=== PATIENT | female | born 1950 | race Caucasian/White ===

== ENCOUNTER 2016-11-27 17:42 | Emergency (ER) | payer MEDICARE, BC ==
[~2016-11-27] VITALS: Ht 162.6 cm; Wt 56.7 kg
[2016-11-27] MEDS ORDERED: LEVO50TA6 (18:56)
[2016-11-27] MEDS ORDERED: [UNRECOGNIZED DRUG - CODE] (18:56)
[2016-11-27] MEDS ORDERED: PRD20T PO (19:22)
--- NOTE | 2016-11-27 19:22 | ED Integumentary General ---
General Chief Complaint: Allergic Reaction Stated Complaint: RASH ON NECK AND ARMS Nursing Triage Note: c/o itchy rash to arms and surrounding neckline. Onset on 10-31-16 but rash resolved. Pt suspected a detergent reaction. Rash returned yesterday. Pt admits to wearing a shirt that was washed in the same detergent. Source: patient Exam Limitations: no limitations History of Present Illness Time seen by provider: 19:09 Initial Comments This 66-year-old woman presents to the emergency room with pruritic rash on her neck, upper chest, and bilateral arms. She had a similar rash several weeks ago which was presumed to be related to new detergent. Rash resolved after she eliminated the exposure. She did wear a shirt washed in the same detergent earlier in the week and rash return on Tuesday. She has been using Benadryl and hydrocortisone cream without much benefit. She believes the rash is now present in areas where there was no contact by the shirt. She cannot identify any other exposures. She denies any throat lip or tongue swelling or difficulty breathing. Allergies and Home Medications Home Medications Flu Vacc [id number](65Yr Up)/Pf 180 Mcg/0.5 Ml Syringe, #1 (Reported) Levothyroxine Sodium 50 Mcg Tablet, #90 (Reported) Prednisone 20 Mg Tab, 20 MG PO DAILY, #4 Prescribed by: ZION WARREN on 11/27/161921 Constitutional: no symptoms reported EENTM: no symptoms reported Respiratory: no symptoms reported Cardiovascular: no symptoms reported Gastrointestinal: no symptoms reported Genitourinary: no symptoms reported Musculoskeletal: no symptoms reported Skin: see HPI Psychiatric/Neurological: No Symptoms Reported Endocrine: No Symptoms Reported Past Iyxspix-Mfaius-Fkaadx Hx Patient Social History Alcohol Use: Denies Use Recreational Drug Use: No Smoking Status: Never a Smoker Recent Foreign Travel: No Contact w/Someone Who Travel: No Recent Infectious Disease Expo: No Surgeries HX Surgeries: No Respiratory Hx Respiratory Disorders: No Cardiovascular Hx Cardiac Disorders: No Neurological Hx Neurological Disorders: No Reproductive System : No Genitourinary Hx Genitourinary Disorders: No Gastrointestinal Hx Gastrointestinal Disorders: No Musculoskeletal Hx Musculoskeletal Disorders: No Endocrine Hx Endocrine Disorders: Yes Endocrine Disorders: Hypothyroidsim HEENT HX ENT Disorders: No Cancer Hx Cancer: No Psychosocial Hx Psychiatric Problems: No Physical Exam Vital Signs Vital Sign - Last 12Hours 11/27/16 18:49 Temp 98.0 Pulse 70 Resp 16 B/P (MAP) 147/75 Pulse Ox 98 O2 Delivery Room Air Capillary Refill : Less Than 3 Seconds General Appearance: WD/WN, no apparent distress HEENT: PERRL/EOMI, normal ENT inspection, pharynx normal Neck: other (mildly raised erythematous pruritic rash on the neck and upper chest) Cardiovascular: regular rate, rhythm, no edema, no murmur Respiratory: lungs clear, normal breath sounds, no respiratory distress, no accessory muscle use Extremities: normal inspection, no pedal edema 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, no motor/sensory deficits, alert, normal mood/affect, oriented x 3 Skin: warm/dry, rash (slightly raised erythematous pruritic rash on the neck, upper chest, and arms) Skin Problem Location: neck, upper extremities, torso Skin Problem Character: erythema, patchy, rash Progress/Results/Core Measures Results/Orders Vital Signs/I&O Vital Sign - Last 12Hours 11/27/16 18:49 Temp 98.0 Pulse 70 Resp 16 B/P (MAP) 147/75 Pulse Ox 98 O2 Delivery Room Air Blood Pressure Mean: 99 Departure Impression Impression: Primary Impression: Contact dermatitis Qualified Codes: L25.9 - Unspecified contact dermatitis, unspecified cause Disposition: 01 HOME, SELF-CARE Condition: Stable Departure-Patient Inst. Decision time for Depature: 19:15 Referrals: GINNY DAWSON MD (PCP/Family) Primary Care Physician Patient Instructions: Dermatitis Add. Discharge Instructions: Use a nondrowsy antihistamine such as Claritin, Zyrtec, or their generic equivalents. You may add Benadryl at night to help with sleep. You may continue using hydrocortisone cream as well. Use your prednisone as prescribed. Be mindful of any allergic triggers and eliminate those from your environment. Return to care immediately if symptoms worsen, especially if you develop any swelling of the throat, lips, or tongue, or if you develop any shortness of breath. All discharge instructions reviewed with patient and/or family. Voiced understanding. Scripts Prednisone (Prednisone) 20 Mg Tab 20 MG PO DAILY, #4 TAB Prov: ZION RDZ MD 11/27/16 ZION RDZ MD Nov 27, 2016 19:22
[2016-11-27 19:31] VITALS: BP 140/72
== END 2016-11-27 19:31 | disposition home or self-care (01) ==
LOC: EDUNIT# 17:42 → ER 17:46
DX: L25.9 Unspecified contact dermatitis, unspecified cause (principal); E03.9 Hypothyroidism, unspecified
CPT/HCPCS: 99282

== ENCOUNTER → 2020-03-25 | Outpatient (CLI) | payer MEDICARE ==
[~2020-03-25] MED LIST: LEVO50TA6; PRD20T PO; [UNRECOGNIZED DRUG - CODE]
--- NOTE | 2020-03-25 17:41 | Diagnostic Imaging Report ---
INDICATION: Low back pain. COMPARISON: No comparison available. FINDINGS: There is a dextroscoliosis with rotatory component of the lumbar spine with apex at L2. Lateral alignment appears unremarkable. There is some wedging of the superior endplate of L1 of indeterminate age. Remainder of the lumbar vertebral body heights appear maintained. The visualized bones of the pelvis demonstrate no acute process. There are right greater than left arthritic changes at the hips. IMPRESSION: Thoracolumbar rotatory dextroscoliosis with normal lateral alignment. There are multilevel endplate changes and lower lumbar facet arthropathy. There is age-indeterminate wedging of the superior endplate of L1. Right greater than left hip osteoarthritic changes noted. Dictated by: Dictated on workstation # [id number]
--- NOTE | 2020-03-25 22:23 | Diagnostic Imaging Report ---
INDICATION: Back pain COMPARISON: No comparison. FINDINGS: There is straightening of normal thoracic kyphosis in the lateral view but no anterior or posterior listhesis. The frontal projection shows mild leftward convexity mid to lower thoracic scoliotic curvature as well as rightward convexity curvature of the lumbar spine. A fracture is not identified. No acute appearing endplate irregularity. IMPRESSION: Reciprocal thoracolumbar scoliotic curvature with diminished thoracic kyphosis. No listhesis or acute thoracic bony abnormality. Dictated by: Dictated on workstation # [id number]
== END ==
LOC: RAD 16:35
PROVIDERS: ATTEND Family Medicine
DX: M41.85 Other forms of scoliosis, thoracolumbar region (principal); M47.816 Spondylosis without myelopathy or radiculopathy, lumbar region; M16.12 Unilateral primary osteoarthritis, left hip; M48.56XA Collapsed vertebra, not elsewhere classified, lumbar region, initial encounter for fracture
CPT/HCPCS: 72072; 72100

== ENCOUNTER → 2020-04-03 | Outpatient (CLI) | payer MEDICARE ==
--- NOTE | 2020-04-03 11:56 | Diagnostic Imaging Report ---
PROCEDURE: MRI lumbar spine. TECHNIQUE: Multiplanar, multisequence MRI of the lumbar spine was performed without contrast. INDICATION: Mid back pain. There are no prior MRI examinations available for comparison. The plain film examination of the lumbar spine performed on 03/25/2020 did note thoracolumbar rotary dextroscoliosis as well as age indeterminate wedging of the superior endplate of L1. On the T2 parasagittal images of this exam the mild compression deformity of L1 is again evident. There is no abnormal signal in this area to suggest bone edema and I suspect this injury is long-standing in nature. The other vertebral body heights are within normal limits. There is desiccation of the disc at every level. The disc spaces are fairly well-maintained. At the L4-L5 level there is borderline trefoil stenosis with mild narrowing of the neural foramen bilaterally. The AP diameter of the thecal sac at this level measures 10.0 mm. There are similar degenerative changes at L3-L4. The AP diameter of the thecal sac measures 9.6 mm. The remainder of the lumbar spine is unremarkable for spinal stenosis or nerve root encroachment. There is no abnormal signal arising from the cord. There is no sign of a paraspinal mass. IMPRESSION: 1. The mild compression deformity of superior endplate of L1 is felt to be long-standing in nature. There is no acute bony abnormality identified. 2. There is degenerative disc, ligamentous and bony disease at L3-L4 and L4-L5. There is borderline trefoil stenosis at these two levels with mild neuroforaminal narrowing bilaterally. Dictated by: Dictated on workstation # [id number]
== END ==
LOC: RAD 11:00
PROVIDERS: ATTEND Nurse Practitioner Family
DX: M51.36 Other intervertebral disc degeneration, lumbar region (principal); M43.8X6 Other specified deforming dorsopathies, lumbar region
CPT/HCPCS: 72148

== ENCOUNTER → 2023-01-07 | Outpatient (CLI) | payer MEDICARE ==
--- NOTE | 2023-01-07 16:17 | Diagnostic Imaging Report ---
INDICATION: Palpable mass left breast. Patient originally presented to the department for bilateral diagnostic mammogram due to palpable mass in the left breast. However, only a 2-D and 3-D CC right-sided mammographic view could be obtained then patient refused the remainder of the study. Right breast shows scattered fibroglandular densities. There are benign calcifications in the right breast. No mass or malignant-appearing microcalcifications are seen on a single view. IMPRESSION: Limited study. Only a right CC view could be obtained. Patient refused the remainder of the study. No suspicious abnormalities on this single view of the right breast is identified. Patient is scheduled to undergo a left breast ultrasound to evaluate the area of palpable abnormality. This will be performed today. ACR BI-RADS Category 2: Benign findings. Result letter will be mailed to the patient. Note: At least 10% of breast cancer is not imaged by mammography. BI-RADS Category 2 Dictated by: Dictated on workstation # [id number]
--- NOTE | 2023-01-07 16:33 | Diagnostic Imaging Report ---
INDICATION: Palpable lump left breast. Sonographic interrogation of the area of the palpable abnormality in the left breast was performed. This corresponds to the 6 o'clock location, approximately 1-2 cm from the nipple. There is a large hypoechoic solid appearing mass at this location which appears to contain internal calcifications. This measures approximately 3.0 x 2.8 x 3.4 cm. Evaluation of the left axilla was also performed demonstrating 2 prominent lymph nodes, largest measuring 1.6 x 1.5 x 2.9 cm. Lymph nodes have lost its normal parenchymal architecture and are concerning for metastatic nodes. IMPRESSION: Large solid mass 6 o'clock location left breast corresponding to the palpable abnormality. This is concerning for breast malignancy and tissue sampling is recommended. There are also prominent lymph nodes in the left axilla, concerning for axillary metastatic disease. Tissue sampling of the lymph nodes is recommended as well. Both of these areas would be amenable to ultrasound-guided approach. ACR BI-RADS Category 4: Suspicious abnormality. Result letter will be mailed to the patient. Note: At least 10% of breast cancer is not imaged by mammography. BI-RADS Category 4 Dictated by: Dictated on workstation # [id number]
== END ==
LOC: RAD 14:15
PROVIDERS: ATTEND Family Medicine
DX: N63.25 Unspecified lump in the left breast, overlapping quadrants (principal); R59.0 Localized enlarged lymph nodes
CPT/HCPCS: 77063

== ENCOUNTER → 2023-01-17 | Day surgery (SDC) | payer MEDICARE ==
[~2023-01-17] MED LIST changes: +LIDOCAINE 1% INJ 10 ML VIAL INJ ONE
[2023-01-17 12:10] VITALS: BP 149/80
--- NOTE | 2023-01-17 13:30 | Diagnostic Imaging Report ---
INDICATION: Left axillary lymphadenopathy. Patient presents for ultrasound-guided core biopsy. Patient brought to the sonographic suite placed on the table in the supine position. Ultrasound imaging of the left axilla was performed to evaluate appropriate entry site. Left axilla was prepped and draped in usual sterile fashion. Small amount of 1% lidocaine was utilized for local anesthesia. A total of 3 core biopsies were obtained of an enlarged left axillary lymph node utilizing a 14-gauge Achieve needle. A marker clip was then deployed. Needle was removed and hemostasis was obtained. Patient tolerated the procedure well and left the department in stable condition. IMPRESSION: Successful ultrasound-guided core biopsy of the enlarged left axillary lymph node. Pathology results are currently pending. Dictated by: Dictated on workstation # [id number]
--- NOTE | 2023-01-17 13:32 | Diagnostic Imaging Report ---
INDICATION: Left breast mass. Patient presents for ultrasound-guided core biopsy. Patient brought to the sonographic suite and placed on table in the supine position. Ultrasound imaging of the left breast was performed to evaluate appropriate entry site. Left breast was then prepped and draped in usual sterile fashion. Small amount of 1% lidocaine was utilized for local anesthesia. A total of 4 core biopsies were made of the large hypoechoic mass in the retroareolar left breast utilizing a 14-gauge Achieve needle. Needle was removed were removed and hemostasis was obtained using manual compression. Patient tolerated the procedure well. IMPRESSION: Successful ultrasound-guided core biopsy of the dominant mass retroareolar left breast, utilizing sonographic guidance. Pathology results are currently pending. Dictated by: Dictated on workstation # [id number]
== END ==
LOC: RAD 12:02
PROVIDERS: ATTEND Family Medicine
DX: C50.912 Malignant neoplasm of unspecified site of left female breast (principal); C77.3 Secondary and unspecified malignant neoplasm of axilla and upper limb lymph nodes
CPT/HCPCS: 19083; 49180; 76942; A4648

== ENCOUNTER 2023-01-25 13:44 | Outpatient (RCR) | payer MEDICARE ==
[~2023-01-25 13:44] MED LIST changes: -LIDOCAINE 1% INJ 10 ML VIAL INJ ONE
[2023-01-25 14:59] LABS: BASOPHILS # (AUTO) 0.1 10^3/uL (0.0-0.1); BASOPHILS % (AUTO) 1 % (0-10); EOSINOPHILS % (AUTO) 0 % (0-10); HEMATOCRIT 39 % (35-52); HEMOGLOBIN 12.9 g/dL (11.5-16.0); LYMPHOCYTES # (AUTO) 1.4 X 10^3 (1.0-4.0); LYMPHOCYTES % (AUTO) 20 % (12-44); MEAN CORPUSCULAR HEMOGLOBIN 31 pg (25-34); MEAN CORPUSCULAR HGB CONC 33 g/dL (32-36); MEAN CORPUSCULAR VOLUME 93 fL (80-99); MEAN PLATELET VOLUME 10.8 fL (9.0-12.2); MONOCYTES # (AUTO) 0.5 X 10^3 (0.0-1.0); MONOCYTES % (AUTO) 7 % (0-12); NEUTROPHILS % (AUTO) 72 % (42-75); PLATELET COUNT 225 10^3/uL (130-400)
[2023-01-25 15:15] LABS: ALBUMIN 4.4 GM/DL (3.2-4.5); BILIRUBIN,TOTAL 0.5 MG/DL (0.1-1.0); CALCIUM 9.5 MG/DL (8.5-10.1); CREATININE SERUM 0.8 MG/DL (0.60-1.30); POTASSIUM 3.7 MMOL/L (3.6-5.0); TOTAL PROTEIN 7.8 GM/DL (6.4-8.2)
== END 2023-01-29 | disposition home or self-care (01) ==
LOC: ONC 13:44
PROVIDERS: ATTEND Internal Medicine Hematology & Oncology
DX: C50.912 Malignant neoplasm of unspecified site of left female breast (principal)
CPT/HCPCS: 80053; 85025; G0463; 99204

== ENCOUNTER → 2023-02-07 | Outpatient (CLI) | payer MEDICARE ==
[~2023-02-07] MED LIST changes: +IOHEXOL 350 MG/ML 100 ML (OMNIPAQUE 350) VIAL IV ONE; +NS 100 ML (IVPB) BAG IV ONE
--- NOTE | 2023-02-07 10:03 | Diagnostic Imaging Report ---
PROCEDURE: CT chest, abdomen, and pelvis with contrast. TECHNIQUE: Multiple contiguous axial images were obtained through the chest, abdomen, and pelvis after the administration of intravenous contrast. Auto Exposure Controls were utilized during the CT exam to meet ALARA standards for radiation dose reduction. INDICATION: History of breast cancer, left breast tenderness. I have no priors FINDINGS: CHEST: There is a large irregular retroareolar left breast mass heterogeneously enhancing with areas of internal calcification and measures 4.1 cm transverse with an AP depth of 3.1 cm maximal, ventrally extending to the skin surface. Lateral to this mass is a 2nd left breast lesion presumed a satellite metastasis measuring 1.6 cm long. There is pathological ipsilateral left axillary lymphadenopathy with the mass measuring 2.2 x 1.9 cm showing peripheral hyperdensity which may be a calcification or local biopsy localization clip. There is a mass posterior to the lateral margin of the left pectoralis minor measuring 2.2 x 1.7 cm. Contralateral right axilla and chest wall appeared normal. The right breast unremarkable at CT. There is abnormal asymmetric soft tissue fullness of the superior left internal mammary chain at the level of the lower manubrium where tissue measured 1.7 x 1.0 cm. The remaining hilar and mediastinal stations appeared normal. There is a noncalcified pulmonary nodule left upper lobe lung 8.2 mm (image 33 series 3). In addition there is a lingular calcified benign nodule in the left upper lobe. No other lung mass. No pneumonia, edema or effusion. No acute or suspect bony lesion. ABDOMEN AND PELVIS: There are multiple low attenuating but solid-appearing lesions in the left and right hepatic lobes presumptively reflective of metastatic disease with the largest solid mass measuring 3.4 cm. The adrenals are negative. The pancreas unremarkable. Kidneys unobstructed and normal. Spleen unremarkable. Some heterogeneous density of the uterus with calcifications and distortion of the endometrium presumptively reflective of underlying fibroids. No adnexal lesion. The pelvic sidewalls and ileo-inguinal stations appeared unremarkable. There is a normal appendix. There is no bowel obstruction or ileus. There is no ascites or omental infiltration and no abdominal pelvic mesenteric or retroperitoneal lymphadenopathy. There is a L1 superior endplate compression deformity without lucent fracture line component or adjacent edema, this is presumed old. No convincing bony metastatic disease to the abdomen or pelvis. IMPRESSION: CHEST: 1. Dominant retroareolar left breast mass with likely additional left breast lateral satellite lesion and ipsilateral left axillary and retropectoral presumptive metastatic adenopathy. 2. A probable left superior internal mammary chain metastatic node. 3. Subcentimeter left upper lobe noncalcified pulmonary nodule is suspicious, there is an additional calcified benign left lung granulomata incidentally noted. ABDOMEN AND PELVIS: 1. Presumptive multifocal hepatic metastatic disease. No other suspected abdominal pelvic metastatic lesion. 2. Likely old L1 superior endplate single column compression deformity without pathological features apparent. Dictated by: Dictated on workstation # [id number]
--- NOTE | 2023-02-07 14:45 | Diagnostic Imaging Report ---
Exam: Nuclear medicine whole-body bone scan. Date: February 07, 2023. Indication: 72-year-old female, history of left breast cancer. Evaluation for metastatic disease. Comparison: CT chest, abdomen and pelvis February 07, 2023. Findings: 27.2 mCi of technetium labeled MDP radiotracer was administered. Delayed subsequent whole-body bone scan images were subsequently obtained. There is no identified radiotracer avid lesion concerning for an osteoblastic bone metastasis. Impression: 1. No evidence of an osteoblastic bone metastasis. Dictated by: Dictated on workstation # [id number]
== END ==
LOC: RAD 08:49
PROVIDERS: ATTEND Internal Medicine Hematology & Oncology
DX: C50.912 Malignant neoplasm of unspecified site of left female breast (principal); R91.8 Other nonspecific abnormal finding of lung field
CPT/HCPCS: 71260; 74177; 78306; A9503

== ENCOUNTER 2023-02-16 10:37 | Outpatient (RCR) | payer MEDICARE ==
[~2023-02-16 10:37] MED LIST changes: -IOHEXOL 350 MG/ML 100 ML (OMNIPAQUE 350) VIAL IV ONE; -NS 100 ML (IVPB) BAG IV ONE
== END 2023-03-01 | disposition home or self-care (01) ==
LOC: ONC 10:37
PROVIDERS: ATTEND Internal Medicine Hematology & Oncology
DX: C50.912 Malignant neoplasm of unspecified site of left female breast (principal)
CPT/HCPCS: 86300

== ENCOUNTER 2023-03-29 10:00 | Outpatient (RCR) | payer MEDICARE ==
[2023-03-07 10:39] LABS: BASOPHILS # (AUTO) 0.1 10^3/uL (0.0-0.1); BASOPHILS % (AUTO) 1 % (0-10); EOSINOPHILS # (AUTO) 0.1 10^3/uL (0.0-0.3); EOSINOPHILS % (AUTO) 2 % (0-10); HEMATOCRIT 39 % (35-52); HEMOGLOBIN 12.7 g/dL (11.5-16.0); LYMPHOCYTES # (AUTO) 1.1 10^3/uL (1.0-4.0); LYMPHOCYTES % (AUTO) 24 % (12-44); MEAN CORPUSCULAR HEMOGLOBIN 31 pg (25-34); MEAN CORPUSCULAR HGB CONC 33 g/dL (32-36); MEAN CORPUSCULAR VOLUME 94 fL (80-99); MEAN PLATELET VOLUME 10.4 fL (9.0-12.2); MONOCYTES # (AUTO) 0.2 10^3/uL (0.0-1.0); MONOCYTES % (AUTO) 4 % (0-12); NEUTROPHILS # (AUTO) 3.3 10^3/uL (1.8-7.8); NEUTROPHILS % (AUTO) 70 % (42-75); PLATELET COUNT 195 10^3/uL (130-400); WHITE BLOOD COUNT 4.7 10^3/uL (4.3-11.0)
[2023-03-14 10:40] LABS: HEMOGLOBIN 11.9 g/dL (11.5-16.0); MEAN CORPUSCULAR VOLUME 94 fL (80-99)
[2023-03-14 10:41] LABS: BASOPHILS # (AUTO) 0.1 10^3/uL (0.0-0.1); BASOPHILS % (AUTO) 2 % (0-10); EOSINOPHILS % (AUTO) 1 % (0-10); HEMATOCRIT 36 % (35-52); LYMPHOCYTES # (AUTO) 0.9 10^3/uL (1.0-4.0); LYMPHOCYTES % (AUTO) 36 % (12-44); MEAN CORPUSCULAR HEMOGLOBIN 31 pg (25-34); MEAN CORPUSCULAR HGB CONC 33 g/dL (32-36); MEAN PLATELET VOLUME 10.6 fL (9.0-12.2); MONOCYTES # (AUTO) 0.1 10^3/uL (0.0-1.0); MONOCYTES % (AUTO) 4 % (0-12); NEUTROPHILS # (AUTO) 1.4 10^3/uL (1.8-7.8); NEUTROPHILS % (AUTO) 56 % (42-75); WHITE BLOOD COUNT 2.5 10^3/uL (4.3-11.0)
[2023-03-14 10:42] LABS: PLATELET COUNT 106 10^3/uL (130-400)
[2023-03-21 10:11] LABS: BASOPHILS % (AUTO) 1 % (0-10); EOSINOPHILS % (AUTO) 1 % (0-10); HEMATOCRIT 35 % (35-52); HEMOGLOBIN 11.3 g/dL (11.5-16.0); LYMPHOCYTES # (AUTO) 0.9 10^3/uL (1.0-4.0); LYMPHOCYTES % (AUTO) 42 % (12-44); MEAN CORPUSCULAR HEMOGLOBIN 31 pg (25-34); MEAN CORPUSCULAR HGB CONC 33 g/dL (32-36); MEAN CORPUSCULAR VOLUME 95 fL (80-99); MEAN PLATELET VOLUME 10.2 fL (9.0-12.2); MONOCYTES # (AUTO) 0.1 10^3/uL (0.0-1.0); MONOCYTES % (AUTO) 6 % (0-12); NEUTROPHILS # (AUTO) 1.1 10^3/uL (1.8-7.8); NEUTROPHILS % (AUTO) 50 % (42-75); PLATELET COUNT 77 10^3/uL (130-400); WHITE BLOOD COUNT 2.2 10^3/uL (4.3-11.0)
[2023-03-29 10:31] LABS: BASOPHILS # (AUTO) 0.1 10^3/uL (0.0-0.1); BASOPHILS % (AUTO) 2 % (0-10); EOSINOPHILS % (AUTO) 0 % (0-10); HEMATOCRIT 35 % (35-52); HEMOGLOBIN 11.4 g/dL (11.5-16.0); LYMPHOCYTES # (AUTO) 1.1 10^3/uL (1.0-4.0); LYMPHOCYTES % (AUTO) 37 % (12-44); MEAN CORPUSCULAR HEMOGLOBIN 31 pg (25-34); MEAN CORPUSCULAR HGB CONC 32 g/dL (32-36); MEAN CORPUSCULAR VOLUME 96 fL (80-99); MEAN PLATELET VOLUME 9.7 fL (9.0-12.2); MONOCYTES # (AUTO) 0.4 10^3/uL (0.0-1.0); MONOCYTES % (AUTO) 14 % (0-12); NEUTROPHILS # (AUTO) 1.4 10^3/uL (1.8-7.8); NEUTROPHILS % (AUTO) 47 % (42-75); PLATELET COUNT 163 10^3/uL (130-400)
== END 2023-03-31 | disposition home or self-care (01) ==
LOC: ONC 10:00
PROVIDERS: ATTEND Internal Medicine Hematology & Oncology
DX: C50.912 Malignant neoplasm of unspecified site of left female breast (principal)
CPT/HCPCS: 36415; 85025; 99214